=== PATIENT | female | born 1970 | race Caucasian/White ===

== ENCOUNTER 2016-08-30 16:04 | Emergency (ER) | payer OTHER ==
[~2016-08-30] VITALS: Ht 157.5 cm; Wt 72.6 kg
[2016-08-30 16:15] VITALS: BP 115/80
--- NOTE | 2016-08-30 16:21 | NUR ---
Patient ambulated to bed 6. RN evaluating patient at bedside.
--- NOTE | 2016-08-30 16:23 | NUR ---
45/F BIB SELF C/O LEFT LOWER LEG PAIN X 1 DAY , COUGH X3 DAYS. PATIENT PRESENTS TO ED WITH . PT STATES . DENIES N/V/D; SKIN IS PINK/WARM/DRY; AAOX4 WITH EVEN AND STEADY GAIT; LUNGS CLEAR BL; HR EVEN AND REGULAR; PT DENIES ANY FEVER, CP OR SOB AT THIS TIME; PATIENT STATES PAIN OF 10/10 AT THIS TIME; VSS; PATIENT POSITIONED FOR COMFORT; HOB ELEVATED; BEDRAILS UP X2; BED DOWN. ER MD MADE AWARE OF PT STATUS.
--- NOTE | 2016-08-30 16:23 | NUR ---
Note undone in EDM - 08/30/16 at 1754 by [email or web address] 45/F BIB SELF C/O LEFT LOWER LEG PAIN X 1 DAY PATIENT PRESENTS TO ED WITH . PT STATES . DENIES N/V/D; SKIN IS PINK/WARM/DRY; AAOX4 WITH EVEN AND STEADY GAIT; LUNGS CLEAR BL; HR EVEN AND REGULAR; PT DENIES ANY FEVER, CP, SOB, OR COUGH AT THIS TIME; PATIENT STATES PAIN OF 10/10 AT THIS TIME; VSS; PATIENT POSITIONED FOR COMFORT; HOB ELEVATED; BEDRAILS UP X2; BED DOWN. ER MADE AWARE OF PT STATUS.
[2016-08-30] MEDS ORDERED: diphenhydrAMINE 50 MG/ML VIAL IVP ONE (16:40)
[2016-08-30] MEDS ORDERED: PROCHLORPERAZINE 10 MG/2 ML VIAL IVP ONE (16:40)
[2016-08-30] MEDS ORDERED: metroNIDAZOLE 250 MG TAB PO ONE (18:20)
[2016-08-30 18:34] VITALS: BP 113/75
== END 2016-08-30 18:27 | disposition home or self-care (01) ==
LOC: MED 16:04
DX: M25.562 Pain in left knee (principal); G44.209 Tension-type headache, unspecified, not intractable; A59.9 Trichomoniasis, unspecified; M25.862 Other specified joint disorders, left knee; F17.210 Nicotine dependence, cigarettes, uncomplicated; E78.00 Pure hypercholesterolemia, unspecified; E11.9 Type 2 diabetes mellitus without complications
CPT/HCPCS: 36415; 73562; 80053; 81001; 81025; 85025; 87086; 87186; 96374; 96375; 99285; J0780; J1200

== ENCOUNTER 2019-02-25 23:30 | Emergency (ER) | payer OTHER ==
[~2019-02-25] VITALS: Ht 157.5 cm; Wt 72.6 kg
[2019-02-25 23:47] VITALS: BP 130/89
--- NOTE | 2019-02-25 23:47 | NUR ---
TO LOBBY A/W BED , AMBULATORY
--- NOTE | 2019-02-26 02:00 | NUR ---
PATIENT CALLED TO PUT ON BED , NO RESPONSE
--- NOTE | 2019-02-26 02:05 | NUR ---
CALLED FOR THE SECOND TIME NO RESPONSE
--- NOTE | 2019-02-26 02:10 | NUR ---
CALLED [facility] THE THIRD TIME , NO RESPONSE
== END 2019-02-26 02:00 | disposition left against medical advice (07) ==
LOC: MED 23:30
DX: R21 Rash and other nonspecific skin eruption (principal); Z53.21 Procedure and treatment not carried out due to patient leaving prior to being seen by health care provider